=== PATIENT | female | born 1945 | race Caucasian/White ===

== ENCOUNTER 2019-08-18 09:14 | Day surgery (SDC) | payer MEDICARE, BC, OTHER ==
[2019-08-14 09:54] VITALS: BMI 21.1
[~2019-08-18 09:14] MED LIST: LACTATED RINGERS 1,000 ML IV SCH; TETRACAINE 0.5% OPHTH (PF) DROPS 4 ML BTL OP ONE; TIMOLOL 0.5% OPHTH DROPS 5 ML BTL OP ONE; TOBRAMYCIN 0.3% OPHTH DROPS 5 ML BTL RIGHT EYE PRN
[2019-08-18] MEDS: CYCLOPENTOLATE 1% OPHTH SOLN 2 ML BTL OP ONE ×3 (10:05→10:14)
[2019-08-18] MEDS: PHENYLEPHRINE 2.5% OPHTH DRP 2ML OP NR ×3 (10:08→10:18)
[2019-08-18 10:09] VITALS: TEMP 97.8
[2019-08-18] MEDS ORDERED: LIDOCAINE 1% 20 ML VIAL (10MG/ML) FOR IV START INTRADERMA ONE (10:13)
[2019-08-18] MEDS ORDERED: MIDAZOLAM 2 MG/2 ML VIAL ONE (11:10)
[2019-08-18] MEDS ORDERED: BALANCED SALT IRRIG SOLN COMB2 15 ML IRRIG.SOLN IRRIGATION ONE (11:23)
[2019-08-18] MEDS ORDERED: HYALURONATE SODIUM INTRAOCULAR 1 EACH SYRINGE (12MG/ML) INTRAOCULA ONE (11:23)
[2019-08-18] MEDS ORDERED: EPINEPHrine (PF) 0.3 ML in BALANCED SALT IRRIG SOLN COMB2 500 ML IRRIGATION ONE (11:23)
[2019-08-18] MEDS ORDERED: LIDOCAINE 1% (PF) 10MG/ML VIAL SQ ONE (11:24)
[2019-08-18] MEDS ORDERED: FLUORESCEIN STRIPS 1 MG STRIP RIGHT EYE ONE (11:44)
--- NOTE | 2019-08-18 11:51 | P.OP ---
Date of Procedure: 08/18/19 Preoperative Diagnosis: NS & CS reg astig Postoperative Diagnosis: same Procedure(s) Performed: PIIOL< OD Implants: [id number] x 2.75 Anesthesia: MAC Surgeon: Ej Child Pathology: none sent Condition: stable Disposition: observation Indications for Procedure: blurry vision Operative Findings: no complications
[2019-08-18 12:13] VITALS: BP 153/85; PULSE 65; RESP 16
--- NOTE | 2019-08-19 05:11 | OP ---
OPERATIVE REPORT DATE OF SURGERY: 08/18/2019 PROCEDURE: Phacoemulsification of cataract and intraocular lens implant of the right eye. PREOPERATIVE DIAGNOSES: Nuclear sclerosis, cortical sclerosis, regular astigmatism. POSTOPERATIVE DIAGNOSES: Nuclear sclerosis, cortical sclerosis, regular astigmatism. SURGEON: Dr. Ej Child. ANESTHESIA: Topical. ESTIMATED BLOOD LOSS: None. SPECIMEN TAKEN: None. NARRATIVE: After obtaining the appropriate consent, the patient was brought to the operating room there she was asked to sit upright and the axis of 0 and 180 degrees were identified and marked with a gentian smooth marker. She was then placed in the proper supine position and prepped and draped in the usual sterile manner. She was approached from her right temporal side using previously acquired corneal topography information. The axis of 76 degrees was identified and marked with a corneal marking instrument. At the 11 o'clock position an MVR blade was used to create a paracentesis port. Through this opening 1% Xylocaine MPF 50:50 mix of balanced salt solution was injected into the anterior chamber. This was followed by stabilization of the anterior chamber with Amvisc. At the 9 o'clock position, 2.5 mm keratome was used to create a self-sealing corneal flap incision. Through this opening, a cystotome was introduced to begin a continuous tear capsulorrhexis which was completed using the Utrata forceps. Hydrodissection and hydrodelineation of the lens was accomplished with balanced salt solution. Phacoemulsification lens utilizing phaco chop was accomplished in 8.78 seconds at 15% power. This was followed by installation of additional Xylocaine MPF and removal of the remaining cortex under irrigation and aspiration along with careful polishing of the posterior capsule in capsule vacuum mode. Additional Amvisc was then placed into the capsular bag and a Bausch [employer] Lomb MX60T 18.5 diopter by 2.75 diopter cylinder was placed within the capsular bag without difficulty. The remaining viscoelastic was then removed from in and around the intraocular lens and the lens was then aligned with the axis of 76 degrees, which had been previously placed on the patient's cornea. The eye was brought to normal intraocular pressure through the paracentesis port. However, there continued to be a persistent Myrna. Therefore ReSure was used on the patient's eye to seal the temporal wound. She then received 2 drops of tobramycin followed by Pred Acetate and then was lightly patched and shielded in the usual manner. There were no complications from the procedure. She tolerated the procedure well, was returned to outpatient recovery in good condition. GALEN / ESTHELA: [id number] /
== END 2019-08-18 12:25 | disposition home or self-care (01) ==
LOC: OR 09:14
PROVIDERS: ATTEND Ophthalmology
DX: H25.813 Combined forms of age-related cataract, bilateral (principal); H52.223 Regular astigmatism, bilateral; H04.129 Dry eye syndrome of unspecified lacrimal gland; H00.023 Hordeolum internum right eye, unspecified eyelid; H00.026 Hordeolum internum left eye, unspecified eyelid; M35.01 Sjogren syndrome with keratoconjunctivitis; H52.13 Myopia, bilateral; H52.4 Presbyopia; G43.909 Migraine, unspecified, not intractable, without status migrainosus; I10 Essential (primary) hypertension; J45.909 Unspecified asthma, uncomplicated; G47.33 Obstructive sleep apnea (adult) (pediatric); M79.7 Fibromyalgia; K21.9 Gastro-esophageal reflux disease without esophagitis; G25.81 Restless legs syndrome; Z88.1 Allergy status to other antibiotic agents; Z88.8 Allergy status to other drugs, medicaments and biological substances; Z91.048 Other nonmedicinal substance allergy status; Z87.891 Personal history of nicotine dependence; Z79.51 Long term (current) use of inhaled steroids; Z79.899 Other long term (current) drug therapy; Z90.49 Acquired absence of other specified parts of digestive tract; Z90.710 Acquired absence of both cervix and uterus; Z90.89 Acquired absence of other organs; Z83.511 Family history of glaucoma; Z80.0 Family history of malignant neoplasm of digestive organs; Z82.49 Family history of ischemic heart disease and other diseases of the circulatory system; Z82.3 Family history of stroke; Z97.3 Presence of spectacles and contact lenses
CPT/HCPCS: 66984; C1780; J2250; J0171; J2001

== ENCOUNTER 2023-08-14 07:41 | Day surgery (SDC) | payer MEDICARE, BC ==
[2023-08-14] MEDS ORDERED: LACTATED RINGERS 1,000 ML IV ONE (08:09)
[2023-08-14 08:17] VITALS: RESP 18; TEMP 97.3
[2023-08-14] MEDS ORDERED: PROPOFOL 10 MG/ML 20 ML VIAL IV ONE (08:26)
[2023-08-14] MEDS ORDERED: LIDOCAINE 2% (PF) 20 MG/ML 5 ML VIAL ONE (08:26)
--- NOTE | 2023-08-14 08:37 | P.PCN ---
Date of Procedure: 08/14/23 Procedure(s) Performed: BRIEF HISTORY: Patient is a 78-year-old, pleasant, white female scheduled for an upper endoscopy as a part of evaluation of GERD and intermittent dysphagia to solids for the last 6 months duration. PROCEDURE PERFORMED: Esophagogastroduodenoscopy with biopsy. PREOPERATIVE DIAGNOSIS: GERD and intermittent dysphagia to solids. IV sedation per anesthesia. PROCEDURE: After informed consent was obtained, the patient was brought into the endoscopy unit. IV sedation was administered by Anesthesia under continuous monitoring. Initially the Olympus GIF-140 video endoscope was inserted into the mouth. Esophagus intubated without any difficulty. It was gradually advanced into the stomach and duodenum and carefully examined. The bulb and the second part of the duodenum appeared normal. The scope at this time was withdrawn to the stomach, adequately insufflated with air, and upon careful examination, mucosa of the antrum, body, cardia and the fundus appeared normal. The scope was then withdrawn into the esophagus. Small hiatal hernia noted. The GE junction was located at 39 cm from the incisors. The esophagus appeared normal. There were no erosions or ulcerations seen. No evidence of esophageal stricture. Biopsies were done from the mid and distal esophagus and the patient tolerated the procedure well. IMPRESSION: 1. Small hiatal hernia. 2. Mild reflux esophagitis. 3. No evidence of esophageal stricture RECOMMENDATIONS: The findings of this examination were discussed with the patient as well as her family. She was advised to follow with the biopsy results. Continue with Pepcid 20 mg twice a day and follow antrum reflux measures..
[2023-08-14 09:06] VITALS: BP 166/58; PULSE 59
== END 2023-08-14 09:22 | disposition home or self-care (01) ==
LOC: ORWHC2ENDO 07:41
PROVIDERS: ATTEND Internal Medicine Gastroenterology
DX: K21.00 Gastro-esophageal reflux disease with esophagitis, without bleeding (principal); K44.9 Diaphragmatic hernia without obstruction or gangrene; G47.33 Obstructive sleep apnea (adult) (pediatric); J45.909 Unspecified asthma, uncomplicated; Z88.1 Allergy status to other antibiotic agents; Z88.2 Allergy status to sulfonamides; Z88.9 Allergy status to unspecified drugs, medicaments and biological substances; Z88.8 Allergy status to other drugs, medicaments and biological substances; Z79.899 Other long term (current) drug therapy; Z90.89 Acquired absence of other organs; Z79.51 Long term (current) use of inhaled steroids; Z98.890 Other specified postprocedural states; Z90.710 Acquired absence of both cervix and uterus
CPT/HCPCS: 88305; 43239; J2704; J2001

== ENCOUNTER → 2024-11-05 | Outpatient (CLI) | payer MEDICARE, BC ==
--- NOTE | 2024-11-05 15:01 | FL ---
EXAMINATION TYPE: FL barium swallow DATE OF EXAM: 11/05/2024 COMPARISON: NONE CLINICAL INDICATION: Female, 79 years old with history of R13.10 DYSPHAGIA, UNSPECIFIED, worsening ov er the last 3 months. History of negative endoscopy 2 years ago. History of surgery for adhesions. TECHNIQUE: A double contrast esophagram is performed utilizing air and barium. A total of 29 second s of fluoroscopic time was utilized during procedure and 47 images obtained. Total DAP = 270.93 mGy. FINDINGS: The esophagus shows satisfactory motility and emptying into the stomach. Moderate pharynge al residuals are present. There is a small to moderate-sized sliding-type hiatal hernia. No intralumi nal mass or stricture is seen. No significant gastroesophageal reflux was seen during real time perfo rmance of this study. IMPRESSION: Small to moderate-sized sliding-type hiatal hernia. Moderate pharyngeal residuals noted . [facility], , 11/05/2024 2:58 PM
== END | disposition home or self-care (01) ==
LOC: RADFLMAIN 14:13
PROVIDERS: ATTEND Internal Medicine Gastroenterology
DX: K44.9 Diaphragmatic hernia without obstruction or gangrene (principal); R13.10 Dysphagia, unspecified
CPT/HCPCS: 74220

== ENCOUNTER 2024-12-10 09:47 | Day surgery (SDC) | payer MEDICARE, BC ==
[~2024-12-10 09:47] MED LIST changes: -LACTATED RINGERS 1,000 ML IV SCH; +LIDOCAINE 1% (10MG/ML) FOR IV START INTRADERMA PRN; -TETRACAINE 0.5% OPHTH (PF) DROPS 4 ML BTL OP ONE; -TIMOLOL 0.5% OPHTH DROPS 5 ML BTL OP ONE; -TOBRAMYCIN 0.3% OPHTH DROPS 5 ML BTL RIGHT EYE PRN
[2024-12-10] MEDS: IV FLUID CONTINUATION 1,000 ML IV ONE (10:15)
[2024-12-10 10:24] VITALS: RESP 16; TEMP 97.8
[2024-12-10] MEDS: LACTATED RINGERS 1,000 ML IV SCH (10:37)
[2024-12-10] MEDS ORDERED: PROPOFOL 10 MG/ML 20 ML VIAL IV ONE (10:56)
[2024-12-10] MEDS ORDERED: LIDOCAINE 2% (PF) 20 MG/ML 5 ML VIAL ONE (10:56)
--- NOTE | 2024-12-10 11:17 | P.PCN ---
Date of Procedure: 12/10/24 Procedure(s) Performed: BRIEF HISTORY: Patient is a 79-year-old, pleasant, white female scheduled an upper endoscopy as a part of evaluation of Intermittent Dysphagia to Solids and Longstanding History of GERD. PROCEDURE PERFORMED: Esophagogastroduodenoscopy with biopsy and dilation. PREOPERATIVE DIAGNOSIS: Intermittent dysphagia to solids. IV sedation per anesthesia. PROCEDURE: After informed consent was obtained, the patient was brought into the endoscopy unit. IV sedation was administered by Anesthesia under continuous monitoring. Initially the Olympus GIF-140 video endoscope was inserted into the mouth. Esophagus intubated without any difficulty. It was gradually advanced into the stomach and duodenum and carefully examined. The bulb and the second part of the duodenum appeared normal. The scope at this time was withdrawn to the stomach, adequately insufflated with air, and upon careful examination, mucosa of the antrum, body, cardia and the fundus appeared normal. Multiple small gastric polyps noted. The scope was then withdrawn into the esophagus. Small hiatal hernia noted. The GE junction was located at 39 cm from the incisors. There was a widely patent distal esophageal Schatzki's ring identified that was dilated using 20 mm TTS balloon. The esophagus appeared normal. There were no erosions or ulcerations seen. The proximal cervical esophagus was carefully examined and appeared normal and the patient tolerated the procedure well. IMPRESSION: 1. Widely patent distal esophageal Schatzki's ring status post balloon dilation using 20 mm TTS balloon. 2. Small hiatal hernia 3. Multiple gastric polyps RECOMMENDATIONS: The findings of this examination were discussed with the patient as well as her family. She was advised to continue with Protonix 40 mg twice daily and Pepcid at bedtime and follow antireflux measures. Follow-up in the office in 2 to 3 weeks.
[2024-12-10 11:49] VITALS: BP 142/74; PULSE 61
== END 2024-12-10 11:55 | disposition home or self-care (01) ==
LOC: ORWHC2ENDO 09:47
PROVIDERS: ATTEND Internal Medicine Gastroenterology
DX: K22.2 Esophageal obstruction (principal); K44.9 Diaphragmatic hernia without obstruction or gangrene; K31.7 Polyp of stomach and duodenum
CPT/HCPCS: 88305; 43239; 43249; J2704; J2003; C1726